=== PATIENT | female | born 1980 | race Caucasian/White ===

== ENCOUNTER 2020-10-25 09:48 | Emergency (ER) | payer MEDICAID, OTHER ==
[~2020-10-25] VITALS: Ht 172 cm; Wt 127.0 kg
[2020-10-25 09:53] VITALS: BP 136/98
--- NOTE | 2020-10-25 10:09 | ED EENT ---
History of Present Illness General Chief Complaint: Ear Problems Stated Complaint: LT EAR PAIN Source: patient History of Present Illness Date Seen by Provider: Oct 25, 2020 Time Seen by Provider: 09:49 Initial Comments 40-year-old female presenting with complaints of left ear pain and drainage. She has been having some dental pain and swelling about she had an abscess since last Monday. She started taking some amoxicillin she got from the feet store. She was taking 500 mg twice a day. She developed pain with drainage from her left ear that has a foul odor. She has a headache on the left side due to the drainage. She denies fever or chills. She states that she is here on vacation from [place] and does not have a local physician. Timing/Duration: abrupt Location: ear (L) Prearrival Treatment: no prearrival treatment Associated Symptoms: No cough; ear drainage, facial pain/swelling; No fever; malaise; No sinus infection, No sore throat; tooth pain Allergies and Home Medications Allergies Coded Allergies: penicillin G (Verified Allergy, Unknown, 10/25/20) Home Medications Amoxicillin 500 Mg Capsule, 500 MG PO TID Prescribed by: CHELLY CARBAJAL on 10/25/20 1012 Ofloxacin 5 Ml Drops, 10 DROP LEFT EAR BID Prescribed by: CHELLY CARBAJAL on 10/25/20 1012 Patient Home Medication List Home Medication List Reviewed: Yes Review of Systems Review of Systems Constitutional: No chills, No fever Eyes: No Symptoms Reported Ears: See HPI Nose: no symptoms reported Mouth: see HPI Throat: no symptoms reported Respiratory: no symptoms reported Cardiovascular: no symptoms reported Gastrointestinal: no symptoms reported Musculoskeletal: no symptoms reported Skin: no symptoms reported Past [id number]-[id number]-Ynhxpx Hx Patient Social History Tobacco Use?: Yes Tobacco type used: Cigarettes Smoking Status: Current Everyday Smoker Alcohol Use?: Yes Alcohol type: Beer Physical Exam Vital Signs Vital Signs - First Documented 10/25/20 09:53 Temp 36.6 Pulse 97 Resp 18 B/P (MAP) 136/98 (111) Pulse Ox 100 O2 Delivery Room Air Height, Weight, BMI Height: '" Weight: lbs. oz. kg; BMI Method: General Appearance: mild distress Eyes: bilateral eye PERRL, bilateral eye EOMI Ears: right ear TM dull; left ear discharge (purulent ), left ear tenderness, left ear TM perforation (pt reports no TM on left. unable to visualize due to purulent drainage filling canal) Mouth/Throat: dental tenderness Neck: full range of motion, supple, lymphadenopathy (L), tender lateral (left side of neck tender to palpation) Cardiovascular: normal peripheral pulses, regular rate, rhythm Respiratory: chest non-tender, lungs clear, normal breath sounds Neurologic/Psychiatric: alert, oriented x 3 Skin: normal color, warm/dry Progress/Results/Core Measures Results/Orders My Orders Orders - CHELLY CARBAJAL MD Rx-Ofloxacin 0.3% Ophth Soln (Rx-Ocuflox (10/25/20 21:00) Rx-Ofloxacin 0.3% Ophth Soln (Rx-Ocuflox (10/25/20 10:17) Vital Signs/I&O 10/25/20 09:53 Temp 36.6 Pulse 97 Resp 18 B/P (MAP) 136/98 (111) Pulse Ox 100 O2 Delivery Room Air Progress Progress Note : Progress Note Treat with ofloxacin eardrops. Increase the amoxicillin to 5 mg 3 times daily for more appropriate dosing. Counseled on follow-up and return precautions. Departure Impression Primary Impression: Acute serous otitis media of left ear Qualified Codes: H65.05 - Acute serous otitis media, recurrent, left ear Additional Impression: Dental abscess Disposition: 01 HOME, SELF-CARE Condition: Stable Departure-Patient Inst. Decision time for Depature: 10:01 Referrals: NO,LOCAL PHYSICIAN (PCP) Primary Care Physician [facility] Patient Instructions: Dental Pain ED, Ear Infection ED, Fluid in the Ear ED, Ruptured Eardrum ED, Tooth Abscess ED Add. Discharge Instructions: Increase Amoxicillin to 500 mg three times a day. Use Ofloxacin antibiotic ear drops to treat the drainage from ear. Ibuprofen 600 mg with Acetaminophen 650 mg every 6 hours as needed for severe pain. Continue with warm pack over the ear to help with pain. All discharge instructions reviewed with patient and/or family. Voiced understanding. Scripts Amoxicillin (Amoxicillin) 500 Mg Capsule 500 MG PO TID for 10 Days, #30 CAP 0 Refills Prov: CHELLY CARBAJAL MD 10/25/20 Ofloxacin (Ofloxacin) 5 Ml Drops 10 DROP LEFT EAR BID for 10 Days, #10 ML 0 Refills Prov: CHELLY CARBAJAL MD 10/25/20 CHELLY CARBAJLA MD Oct 25, 2020 10:09
[2020-10-25] MEDS ORDERED: AMOX500C2 PO (10:12)
[2020-10-25] MEDS ORDERED: OFLO5DRO33 LEFT EAR (10:12)
[2020-10-25] MEDS ORDERED: RX-OFLOXACIN 0.3% OPHTH SOLN 5 ML ONE (10:17)
[2020-10-25] MEDS ORDERED: RX-OFLOXACIN 0.3% OPHTH SOLN 5 ML OP SCH (21:00)
== END 2020-10-25 10:18 | disposition home or self-care (01) ==
LOC: ER FS 09:50
DX: H65.02 Acute serous otitis media, left ear (principal); K04.7 Periapical abscess without sinus; F17.210 Nicotine dependence, cigarettes, uncomplicated
CPT/HCPCS: 99282

== ENCOUNTER 2021-03-28 20:36 | Emergency (ER) | payer MEDICAID, OTHER ==
[~2021-03-28] VITALS: Ht 172.7 cm; Wt 88.1 kg
[~2021-03-28 20:36] MED LIST: AMOX500C2 PO; OFLO5DRO33 LEFT EAR
[2021-03-28 20:41] VITALS: BP 147/97
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
== END 2021-03-28 21:00 ==
LOC: EDUNIT# 20:36 → ER FS 20:39
DX: S01.511A Laceration without foreign body of lip, initial encounter (principal); S01.21XA Laceration without foreign body of nose, initial encounter; Y04.2XXA Assault by strike against or bumped into by another person, initial encounter
CPT/HCPCS: 99283

== ENCOUNTER 2021-10-19 11:49 | Emergency (ER) | payer SELFPAY | END 2021-10-19 12:51 | disposition home or self-care (01) | LOC: EDUNIT# 11:49 → ER 11:53 | DX: Z48.02 Encounter for removal of sutures (principal) ==